=== PATIENT | male | born 2000 | race Caucasian/White ===

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

== ENCOUNTER → 2021-07-04 | Outpatient (REF) | payer BC | LOC: M LAB REF 18:20 | PROVIDERS: ATTEND Physician Assistant Medical | DX: R50.9 Fever, unspecified (principal) ==

== ENCOUNTER → 2022-01-17 | Outpatient (CLI) | payer BC ==
[2022-01-18 17:07] LABS: TESTOSTERONE FREE (DIRECT) 16.5 pg/mL (9.3-26.5)
== END ==
LOC: M PLALAB 08:21
PROVIDERS: ATTEND Physician Assistant
DX: Z90.79 Acquired absence of other genital organ(s) (principal)

== ENCOUNTER 2022-05-26 21:35 | Emergency (ER) | payer BC ==
[~2022-05-26] VITALS: Ht 175.3 cm; Wt 95.8 kg
[2022-05-26 21:36] VITALS: BP_DIAS 66
[2022-05-27 02:05] VITALS: BP_SYST 118
== END 2022-05-27 02:07 | disposition home or self-care (01) ==
LOC: M ED 21:35
DX: N50.812 Left testicular pain (principal)